=== PATIENT | male | born 1990 | race Two or more races ===

== ENCOUNTER 2024-11-07 16:28 | Inpatient (IN) | payer MEDICAID, SELFPAY ==
[2024-11-07 16:29] VITALS: BMI 32.8
[2024-11-07 17:30] VITALS: BP 112/72; PULSE 130; RESP 20; TEMP 38.3; O2SAT 97
--- NOTE | 2024-11-07 17:41 | EKG_ITS ---
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
--- NOTE | 2024-11-07 18:05 | PD.EDRME ---
Rapid Medical Screening Exam RME Arrival date/time: 11/07/24 16:28 Chief Complaint: Extremity Injury, Lower Time Seen by Provider: 11/07/24 17:21 Vital signs: Vital Signs Temperature 100.9 F H 11/07/24 17:30 Pulse Rate 130 H 11/07/24 17:30 Respiratory Rate 20 11/07/24 17:30 Blood Pressure 112/72 11/07/24 17:30 Pulse Oximetry (%) 97 11/07/24 17:30 Oxygen Delivery Method Room Air 11/07/24 17:30 Vital signs reviewed by provider: Yes RME Narrative: 34-year-old male presents to the ED with a complaint of left lower extremity swelling, redness and significant pain. The symptoms began yesterday and has become progressively worse. He has had a fever and tachycardia. Unknown context of injury he does not remember a bite or any small amount of redness or swelling. He woke up yesterday with the entire lower extremity swollen. Sepsis bundle ordered, sepsis fluids and antibiotics pending. Patient will be moved to the ED side for further treatment and disposition. I have greeted and performed a focused initial assessment of this patient. A comprehensive ED assessment and evaluation of the patient, analysis of all test results, and completion of the medical decision making process will be conducted by additional ED providers.
[2024-11-07] MEDS: SODIUM CHLORIDE 0.9% 1000 ML 1,000 ML 999 ML IV (18:15)
[2024-11-07 18:18] LABS: Lactate (Lactic Acid) 1.5 mMol/L (0.4-2.0)
[2024-11-07 18:23] LABS: Basophils % (Auto) 0 % (0-2.5); Eosinophils % (Auto) 0 % (0-10); Hematocrit 36.7 % (41.0-53.0); Hemoglobin 12.5 g/dL (13.5-16.0); Immature Granulocytes % (Auto) 0 % (0-0); Immature Granulocytes Auto 0.04 Thou/mm3 (0.00-0.00); Lymphocytes # (Auto) 1.3 Thou/mm3 (1.0-4.8); Lymphocytes % (Auto) 12 % (10-50); Mean Corpuscular HGB Conc 34.1 g/dl (31.0-37.0); Mean Corpuscular Hemoglobin 30.3 pg (25.0-35.0); Mean Corpuscular Volume 89 fL (80-100); Monocytes # (Auto) 0.9 Thou/mm3 (0.0-0.8); Monocytes % (Auto) 8 % (0-12); Neutrophils # (Auto) 8.9 Thou/mm3 (1.8-7.7); Neutrophils % (Auto) 79 % (37-80); Nucleated Red Blood Cell % 0 /100 WBC (0); Platelet Count 262 Thou/mm3 (140-440); RDW Standard Deviation 41.7 fL (35.1-43.9); Red Blood Count 4.13 Miln/mm3 (4.50-5.90); White Blood Count 11.2 Thou/mm3 (3.8-10.6)
[2024-11-07 18:39] LABS: INR 1.1 (0.9-1.3); Partial Thromboplastin Time 29.6 Seconds (22.0-36.0); Prothrombin Time 11.9 Seconds (9.0-12.2)
[2024-11-07 18:45] LABS: Alanine Aminotransferase 13 U/L (10-49); Albumin/Globulin Ratio 1.3 (1.2-2.2); Alkaline Phosphatase 59 U/L (46-116); Anion Gap 6 (7-16); Aspartate Amino Transferase 21 U/L (0-34); BUN/Creatinine Ratio 10 Ratio (12-20); Bilirubin,Total 0.5 mg/dL (0.3-1.2); Blood Urea Nitrogen 10 mg/dL (9-23); Calcium 8.9 mg/dL (8.3-10.6); Calcium (Corrected) 8.9 mg/dL (8.5-10.1); Carbon Dioxide 25.7 mMol/L (20.0-31.0); Chloride 102 mMol/L (98-107); Estimated Creatinine Clearance 116.6 mL/min (>60); Glucose 121 mg/dL (74-106); Osmolality,Calculated 268 (275-295); Potassium 3.3 mMol/L (3.4-5.1); Procalcitonin 1.44 ng/ml (0.0-0.49); Sodium 134 mMol/L (136-145); Troponin I < 0.002 ng/mL (0.0-0.045); eGFR > 60 See Note
--- NOTE | 2024-11-07 18:51 | XR_ITS ---
Examination: AP lateral chest 2 views Technique: Sitting AP lateral chest 2 views Exam date and time: November 07, 2024, 1931 hrs. Comparison June 30, 2005. Indications: Sepsis with bilateral leg pain beginning 2 days ago swelling involving the legs Findings: No significant cardiac enlargement taking into account AP projection Mild elevation right hemidiaphragm. No pneumonia or pulmonary edema. Intact osseous structures. Impression: No pneumonia or pulmonary edema
[2024-11-07 19:48] VITALS: BP 107/60; PULSE 107; RESP 19; TEMP 37.9; O2SAT 95
[2024-11-07 19:51] VITALS: PULSE 100; RESP 20; O2SAT 96
[2024-11-07] MEDS: RINGERS LACTATED 1983 ML IV (19:53)
[2024-11-07] MEDS: PIPER/TAZO INJ 4.5 GM in SODIUM CHLORIDE 0.9% (POP) 100 ML IV (19:55)
[2024-11-07] MEDS: Vancomycin Inj 2,000 MG in SODIUM CHLORIDE 0.9% 500 ML 500 ML 150 MG IV (19:57)
--- NOTE | 2024-11-07 20:21 | EDNOTE_ITS ---
Lower Extremity Injury RME/HPI General Chief Complaint: Extremity Injury, Lower Stated Complaint: LEFT LEG SWELLING FEVER SINCE YESTERDAY Time Seen by Provider: 11/07/24 17:21 Arrival date/time: 11/07/24 16:28 RME / HPI RME / HPI Narrative: 34-year-old male presents to the ED with a complaint of left lower extremity swelling, redness and significant pain. The symptoms began yesterday and has become progressively worse. He has had a fever and tachycardia. Unknown context of injury he does not remember a bite or any small amount of redness or swelling. He woke up yesterday with the entire lower extremity swollen. Sepsis bundle ordered, sepsis fluids and antibiotics pending. Patient will be moved to the ED side for further treatment and disposition. I have greeted and performed a focused initial assessment of this patient. A comprehensive ED assessment and evaluation of the patient, analysis of all test results, and completion of the medical decision making process will be conducted by additional ED providers. --------- Dr. Jackson?s Main ED Evaluation: 34yo male with no significant past medical history presents to the ED for a chief complaint of LLE pain and swelling x 2 days. Patient states he started having LLE pain and swelling 2 days ago, but denies any trauma. Patient endorses having a fever. He denies any cough, chest pain, shortness of breath or any other associated symptoms. Patient denies any history of similar symptoms. No known allergies. Related Data Allergies Allergy/AdvReac Type Severity Reaction Status Date / Time No Known Allergies Allergy Verified 11/07/24 16:31 Review of Systems Review of Systems Systems Reviewed: All systems reviewed, normal except as documented Past Medical History Past Medical History CARDIAC: Negative Congestive Heart Failure RESPIRATORY: Negative Chronic Obstructive Pulmonary Disease (COPD) GENITOURINARY: Negative Renal Disease ENDOCRINE: Negative Diabetes Mellitus Type 1 or Diabetes Mellitus Type 2 Social History SMOKING STATUS: Current every day smoker ED Exam Narrative Physical exam: GENERAL APPEARANCE: alert and oriented x 4, well-developed, well-nourished, no acute distress VITALS: All vitals were reviewed and the pulse ox is 96% on room air, which is normal according to my interpretation. HEENT: Normocephalic, atraumatic; pupils equal, round, reactive to light; EOMI; mucous membranes pink, moist; oropharynx clear NECK: Supple LUNGS: CTABL; no wheezes, no rales, no rhonchi HEART: Regular rate, regular rhythm; normal S1, S2; no murmurs ABDOMEN: non distended; normal BS; soft, no tenderness, no guarding, no rebound; no masses, no organomegaly, no hernia BACK: no CVA tenderness EXTREMITIES: atraumatic; no edema; circumferential erythema, swelling, tenderness, and hot to touch at the LLE from the ankle to just above the knee; erythema to the medial aspect of the LLE from the knee to the groin with er ythema, swelling, and tenderness on palpation NEUROLOGIC: awake; alert and oriented x4; cranial nerves II-XII grossly intact; no focal sensory or motor deficits PSYCHIATRIC: appropriate mood and affect SKIN: warm, dry, normal color; no rashes Course Course Course Narrative: CXR is ordered for determining the etiology of fever. Quality Measures Possible source: skin/soft tissue Blood cultures ordered: yes Antibiotic ordered: Yes Pertinent labs: 11/07/24 18:10 Lactic Acid 1.5 mMol/L (0.4-2.0) Procalcitonin 1.44 H ng/ml (0.0-0.49) sepsis Orders Category Date Time Status Bedside Blood Glucose NOW Care 11/07/24 17:41 Active Small Products Ii Assembler NOW Care 11/07/24 17:41 Active Continuous Pulse Oximetry NOW Care 11/07/24 17:41 Completed EKG (ED ONLY) *Do not use* NOW Care 11/07/24 17:41 Completed Insert IV NOW Care 11/07/24 17:41 Active Strict Intake and Output Q1H Care 11/07/24 17:45 Ordered Strict Intake and Output Q1H Care 11/07/24 18:45 Ordered Strict Intake and Output Q1H Care 11/07/24 19:45 Ordered Strict Intake and Output Q1H Care 11/07/24 20:45 Ordered Strict Intake and Output Q1H Care 11/07/24 21:45 Ordered Strict Intake and Output Q1H Care 11/07/24 22:45 Ordered Strict Intake and Output Q1H Care 11/07/24 23:45 Ordered Strict Intake and Output Q1H Care 11/08/24 00:45 Ordered Strict Intake and Output Q1H Care 11/08/24 01:45 Ordered Strict Intake and Output Q1H Care 11/08/24 02:45 Ordered Strict Intake and Output Q1H Care 11/08/24 03:45 Ordered Strict Intake and Output Q1H Care 11/08/24 04:45 Ordered Strict Intake and Output Q1H Care 11/08/24 05:45 Ordered Strict Intake and Output Q1H Care 11/08/24 06:45 Ordered Strict Intake and Output Q1H Care 11/08/24 07:45 Ordered Strict Intake and Output Q1H Care 11/08/24 08:45 Ordered Strict Intake and Output Q1H Care 11/08/24 09:45 Ordered Strict Intake and Output Q1H Care 11/08/24 10:45 Ordered Strict Intake and Output Q1H Care 11/08/24 11:45 Ordered Strict Intake and Output Q1H Care 11/08/24 12:45 Ordered Strict Intake and Output Q1H Care 11/08/24 13:45 Ordered Strict Intake and Output Q1H Care 11/08/24 14:45 Ordered Strict Intake and Output Q1H Care 11/08/24 15:45 Ordered Strict Intake and Output Q1H Care 11/08/24 16:45 Ordered EKG (ED Only) Stat Exams 11/07/24 17:41 Draft US venous doppler LE LT Stat Exams 11/07/24 20:22 Completed XR chest 2V Stat Exams 11/07/24 18:51 Completed Blood Culture (Lab) Stat Lab 11/07/24 18:10 Received CBC Stat Lab 11/07/24 18:10 Completed Comprehensive Metabolic Panel Stat Lab 11/07/24 18:10 Completed Lactate (Lactic Acid) Stat Lab 11/07/24 18:10 Completed Partial Thromboplastin Time Stat Lab 11/07/24 18:10 Completed Procalcitonin Stat Lab 11/07/24 18:10 Completed Prothrombin Time with INR Stat Lab 11/07/24 18:10 Completed Troponin I Stat Lab 11/07/24 18:10 Completed Urinalysis Stat Lab 11/07/24 21:54 Received Urine Culture Stat Lab 11/07/24 21:54 Received Acetaminophen Tab [Tylenol ES Tab] Med 11/07/24 20:27 Discontinued 1,000 mg PO X1 ONE Piper/Tazo Inj [Zosyn Inj] 4.5 gm Med 11/07/24 17:44 Discontinued Sodium Chloride 0.9% (Pop) [NS 0.9% mini bag] 100 ml IV X1 Potassium Chloride [K-Dur] Med 11/07/24 21:46 Discontinued 40 meq PO X1 ONE Ringers Lactated 1000 ml [Lactated Ringers] 1,983 ml Med 11/07/24 18:49 Discontinued IV 1,983 mls/hr Sodium Chloride 0.9% 1000 ml [Ns] 1,000 ml Med 11/07/24 18:05 Discontinued IV 999 mls/hr Sodium Chloride 0.9% 1000 ml [Ns] 2,858 ml Med 11/07/24 17:40 Discontinued IV 2,858 mls/hr Vancomycin Inj 2,000 mg Med 11/07/24 19:00 Active Sodium Chloride 0.9% 500 ml [Ns] 500 ml IV X1 Vancomycin Pharmacy to Dose Med 11/07/24 17:45 Active 1 each IV QDAY PRN Vancomycin/D5w 1,250 mg Ivpb 250 ml Med 11/08/24 06:00 Active IV Q8HR Vancomycin/Water 1250 mg Ivpb 250 ml Med 11/08/24 06:00 Discontinued IV Q8HR Oxygen Delivery NOW RT 11/07/24 17:41 Active Vital Signs Vital signs: Vital Signs Temperature 100.9 F H 11/07/24 17:30 Pulse Rate 130 H 11/07/24 17:30 Respiratory Rate 20 11/07/24 17:30 Blood Pressure 112/72 11/07/24 17:30 Pulse Oximetry (%) 97 11/07/24 17:30 Oxygen Delivery Method Room Air 11/07/24 17:30 Extremity Injury, Lower MDM Narrative MDM Narrative:: Scribe Attestation: 11/07/24 - Emmy Velazquez am scribing for and in the presence of Dr. Jackson. 1733: Sepsis alert initiated prior to my shift. Orders made at this time are congruent with ED Adult Sepsis Order List. Re-evaluation is to be completed. 1941: NS IVF infused. 2010: Sepsis reassessment performed consisting of lab review, vitals, physical exam including auscultation of heart, lungs, and visual evaluation of capillary refills, mucosal membranes and extremities. 2213: US is negative for DVT. Discussed case with the resident physician, attending Dr. Veliz from Hospitalist service regarding admission. Discussed patients ED course, exam findings, labs, and radiology results. The Hospitalist agrees to accept the patient for admission. Patient data External records reviewed:: [facility] previous records (Per chart review, patient has no relevant previous ED visits.) Clinical information provided by:: patient Social determinants that could affect healthcare access:: none Patient has the following chronic illnesses:: none How is presenting disease/condition affected by chronic disease/condition?: no chronic disease Evaluation data The following diagnostics were reviewed and interpreted by me:: lab results and radiology exam(s) Lab and/or radiology exams considered but not ordered:: none Interpretation Summary: WBC count is elevated at 11.2, PT and INR are normal, PTT is normal, Potassium is 3.3, Lactic Acid is normal, Procalcitonin is elevated at 1.44, according to my interpretation. EKG done at 1750, sinus tachycardia, rate of 119, normal axis, no ectopy, no acute ischemia, according to my interpretation. [facility] Report Signed Patient: VICENTE PRICE. Record#: [id number] Birthdate: 1990 Age/Sex: 34 / M Location: [facility] Attending Dr: Ordering Physician: Jorge Jackson MD Date of Service: 11/07/24 Procedure(s): US venous doppler LE LT Accession Number(s): [id number] cc: Dank Bermeo MD; NO PRIMARY/FAMILY,PHYSICIAN; Jorge Jackson MD~ Examination: Duplex scan of the lower extremity, unilateral left Date and time of exam: November 07, 2024 2117 hrs. Indications: Erythema and warmth left leg onset today Technique: Duplex scan of the extremity veins using B-mode/grayscale imaging and Doppler spectral analysis and color flow Attention is directed to internal echogenicity, compression and augmentation involving these veins, color flow assessment, spectral analysis Findings: Major deep venous structures in the extremity demonstrate normal course and caliber. There is no evidence of deep vein thrombosis. Normal color flow and spectral analysis Impression: Negative for DVT.. Dictated By: Dank Bermeo MD Signed By: <Electronically signed by Dank Bermeo MD in OV> 11/07/24 2201 Medications / Prescriptions Medications or Prescriptions considered but not ordered:: none Medication administrations:: Medication Administration History Vancomycin HCl 2,000 mg/ (Sodium Chloride) 500 mls @ 150 mls/hr IV X1 ONE Stop: 11/07/24 22:19 Last Admin: 11/07/24 19:57 Dose: 10 mg/min, 150 mls/hr Documented By: RACHEL Vancomycin HCl/Dextrose (Vancomycin/D5w 1,250 Mg Ivpb) 250 mls @ 120 mls/hr IV Q8HR [facility] Stop: 11/15/24 05:59 Pharmacy Consult (Vancomycin Pharmacy To Dose 1 Each Each) 1 each IV QDAY PRN PRN Reason: PROTOCOL Stop: 12/07/24 17:44 Discontinued Medications Acetaminophen (Acetaminophen 500 Mg Tablet) 1,000 mg PO X1 ONE Stop: 11/07/24 20:28 Last Admin: 11/07/24 21:04 Dose: 1,000 mg Documented By: RACHEL Sodium Chloride (Ns) 2,858 mls @ 2,858 mls/hr 30 ml/kg infuse over 60 min (2858 ml) IV .Q1H ONE Stop: 11/07/24 18:39 Last Admin: 11/07/24 19:41 Dose: Not Given Documented By: RACHEL Non-Admin Reason: Cancelled by Provider Piperacillin Sod/Tazobactam (Sod 4.5 gm/ Sodium Chloride) 100 mls @ 200 mls/hr IV X1 ONE Stop: 11/07/24 18:13 Last Infusion: 11/07/24 20:43 Dose: Infused Documented By: Admin: 11/07/24 19:55 Dose: 200 mls/hr Documented By: RACHEL Comments: LATE DUE TO NO ROOM TILL NOW Sodium Chloride (Ns) 1,000 mls @ 999 mls/hr IV .Q1H1M ONE Stop: 11/07/24 19:05 Last Infusion: 11/07/24 19:41 Dose: Infused Documented By: Admin: 11/07/24 18:15 Dose: 999 mls/hr Documented By: SERGO Vancomycin HCl (Vancomycin/Water 1250 Mg Ivpb) 250 mls @ 120 mls/hr IV Q8HR [facility] Stop: 11/15/24 05:59 Lactated Ringer's (Lactated Ringers) 1,983 mls @ 1,983 mls/hr 30 ml/kg infuse over 60 min (1983 ml) IV .Q1H ONE Stop: 11/07/24 19:48 Last Infusion: 11/07/24 21:12 Dose: Infused Documented By: Admin: 11/07/24 19:53 Dose: 1,983 mls/hr Documented By: RACHEL Comments: LATE DUE TO NO ROOM TILL NOW Potassium Chloride (Potassium Chloride 20 Meq Tabcr) 40 meq PO X1 ONE Stop: 11/07/24 21:47 Last Admin: 11/07/24 21:55 Dose: 40 meq Documented By: RACHEL see above Consultations Consultation(s) initiated? (list below): Yes Consultation #1 (Physician, Specialty, Details): See MDM. Diagnosis Extremity Injury, Lower Differential Diagnosis: other (DVT, cellulitis, necrotizing fasciitis) Most likely diagnosis given after review of the tests above:: see clinical impression below Admission Indicated Admission indicated?: indicated Admission Request Was there a request for admission?: Yes Admission Attestation Admission request attestation: Discussed case with [] from Hospitalist service regarding admission. Discussed patients ED course, exam findings, labs, and radiology results. The Hospitalist [agrees,declines] to accept the patient for admission. Disposition Plan Disposition Plan: Admit Critical Care Time Critical Care Time Critical Care Time: Yes Total Critical Care Time (min.): 35 Attestation: The high probability of sudden, clinically significant deterioration in the patient?s condition required the highest level of my preparedness to intervene urgently. The services I provided to this patient were to treat and/or prevent clinically significant deterioration. Services included the following: chart data review, reviewing nursing notes and/or old charts, documentation time, otm consultant collaboration regarding findings and treatment options, medication orders and management, direct patient care, vital sign assessments and ordering, interpreting and reviewing diagnostic studies and lab tests. Aggregate critical care time includes only time during which I was engaged in work directly related to the patient?s care, as described above, whether at bedside or elsewhere in the Emergency Department. It did not include time spent performing other reported procedures or the services of residents, students, nurses or physician assistants. Discharge Plan Plan Patient Disposition: Admit Acute Care w/in Hospital Prescriptions/Referrals Referrals: No Primary/Family,Physician [Primary Care Provider] - In 1 week Problem List Clinical Impression: Cellulitis, Sepsis Patient/Caregiver Discharge Instructions Print Language: Macedonian Stand Alone Forms: Gisella Award Info., Patient Portal Info Letter
[2024-11-07] MEDS: ACETAMINOPHEN 500 MG TABLET 1000 MG PO (21:04)
[2024-11-07] MEDS: POTASSIUM CHLORIDE 20 mEq TABCR 40 MEQ PO (21:55)
[2024-11-07 22:04] LABS: Collection Type, Urine Clean Catch
[2024-11-07 22:15] VITALS: BP 117/60; PULSE 108; RESP 32; TEMP 37.8; O2SAT 98
[2024-11-07 22:24] LABS: Bacteria,Urine 4+; Bilirubin,Urine Negative (Negative); Blood,Urine 2+ (Negative); Clarity,Urine Turbid (Clear/Hazy); Color,Urine Yellow (Lt Yel-Yel); Glucose, Urine Negative (Negative); Ketones,Urine Negative (Negative); Leukocyte Esterase,Urine Positive (Negative); Nitrite,Urine Positive (Negative); Protein,Urine 1+ (Neg - Trace); RBC,Urine 7 /hpf (0-3); Specific Gravity,Urine 1.027 (1.001-1.035); Squamous Epithelial Cell,Urine 2 /hpf (0-5); Urobilinogen,Urine Negative mg/dL (0.0-1.0); WBC,Urine 28 /hpf (0-5)
--- NOTE | 2024-11-07 22:54 | XR_ITS ---
Examination: CT left lower extremity, with intravenous contrast. 2-D sagittal reconstructions. 2-D coronal reconstructions. 3-D reconstructions. Date and time of exam:November 08, 2024 0042 hrs. Indications: Left leg swelling redness and inflammation beginning yesterday CTDI: vol (mGy):5.85 DLP: (mGycm):387 Technique: Multiple 1.25 mm axial sections of the left lower extremity 60 cc Isovue-370 have been obtained. 2-D sagittal and coronal reconstructions have been obtained. 3-D reconstructions have been obtained. Low dose protocols were performed. One or more of the following dose reduction techniques were used; automated exposure control, adjustment of the mA and/or KV according to patient size, use of iterative reconstruction technique. Findings: Cellulitis pattern with edema in the subcutaneous fatty tissue with skin thickening No soft tissue abscess No luis cortical bone destruction 2 mm linear opacity adjacent to the distal fourth metatarsal No fracture Impression: Cellulitis pattern with edema in the subcutaneous fatty tissue lower leg No luis abscess Negative for osteomyelitis Recommend plain films follow-up to confirm 2 mm opaque foreign body adjacent to the distal fourth metatarsal
--- NOTE | 2024-11-07 23:03 | ESHP_ITS ---
Documentation for date of: 11/07/24 [facility] History of Present Illness History of present illness: The patient is a 34-year-old male with significant past medical history of prediabetes, and puncture wound over the left foot 1 year ago presented with chief complaint of left lower extremity swelling and redness for 2 days. His symptoms were associated with subjective fever, mild chills, and nausea including headache and diaphoresis. He does not remember any insect bite or injury, but reported having continuous pain over the left foot after puncture wound 1 year ago. He denied any lightheadedness, SOB, sore throat, chest pain, abdominal pain, any changes in bowel or bladder habit, chronic bilateral leg swelling, and any recent sick contacts. In the ED his vitals were significant for pulse 130, temperature 100.9, labs revealed white count 11.2, hemoglobin 12.5, sodium 134, potassium 3.3, blood sugar 121, osmolality 268, lactic acid 1.5, troponin negative, Pro-Cristopher 1.44. UA revealed turbid urine, 1+ protein, 2+ blood, nitrite positive, leukocyte esterase positive, RBC 7 and WBC 28 with urine bacteria 4. EKG revealed sinus tachycardia, chest x-ray was negative for vascular congestion or pneumonia, base Doppler left lower extremity was negative. PMH: Prediabetes SHX: None Social history: Smoked cigarette for about 6 months, and vaping recently about 2 to 3 months, last vaping was few days ago, denies alcohol or illicit drug use, works in the [employer] Medications: None Family history: Significant for diabetes in both parents, cardiac disease in mother Allergies: No known allergies Patient was given 30 cc/kg bolus IV fluid, IV vancomycin and Zosyn x 1, Tylenol x 1 and admitted to [facility] telemetry unit for further management of left lower extremity cellulitis. Review of Systems Review of Systems Systems Reviewed: All systems reviewed, normal except as documented Exam Vital Signs Temp Pulse Resp BP Pulse Ox O2 Del Method 100.0 F 108 H 32 H 117/60 98 Room Air 11/07/24 22:15 11/07/24 22:15 11/07/24 22:15 11/07/24 22:15 11/07/24 22:15 11/07/24 19:48 Narrative Exam General: Young, cooperative, well-developed gentleman, no acute distress, Alert and Oriented x 3 HEENT: Mildly dry mucous membranes, oropharynx clear Neck: Supple, No masses, No JVD CVS: Tachycardic, No murmurs, rubs or gallops Lungs: Clear to auscultation with no accessory use, no wheeze no rhonchi Abd: Soft, NT/ND, +BS, no organomegaly Ext: Left lower limb edema and erythema extending from ankle to the upper thigh, warm and well perfused Skin: Erythema over entire left lower limb, sparing the calf area Psych: Mildly diaphoretic and anxious Results: Labs 11/07/24 18:10 11/07/24 18:10 Labs: Short CBC 11/07/24 Range/Units 18:10 WBC 11.2 H (3.8-10.6) Thou/mm3 Hgb 12.5 L (13.5-16.0) g/dL Hct 36.7 L (41.0-53.0) % Plt Count 262 (140-440) Thou/mm3 BMP 11/07/24 18:10 Sodium 134 L Potassium 3.3 L Chloride 102 Carbon Dioxide 25.7 BUN 10 Creatinine 1.0 Glucose 121 H Calcium 8.9 Cardiac Enzymes 11/07/24 Range/Units 18:10 Troponin I < 0.002 (0.0-0.045) ng/mL Liver Function 11/07/24 Range/Units 18:10 Total Bilirubin 0.5 (0.3-1.2) mg/dL AST 21 (0-34) U/L ALT 13 (10-49) U/L Alkaline Phosphatase 59 (46-116) U/L Albumin 4.0 (3.5-5.0) gm/dL Urine 11/07/24 Range/Units 21:54 Urine Color Yellow (Lt Yel-Yel) Urine Clarity Turbid A (Clear/Hazy) Urine pH 6.0 (5.0-7.0) Ur Specific [place] 1.027 (1.001-1.035) Urine Protein 1+ A (Neg - Trace) Urine Glucose (UA) Negative (Negative) Quality Measures Quality Measures sepsis Current suspected stage: ruled out (No end organ failure) Possible source: skin/soft tissue Blood cultures ordered: yes Antibiotic ordered: Yes Medications Home Medications and Allergies Allergies Allergy/AdvReac Type Severity Reaction Status Date / Time No Known Allergies Allergy Verified 11/07/24 16:31 Visit Medications Acetaminophen (Acetaminophen 325 Mg Tablet) 650 mg PO Q6H PRN PRN Reason: Fever >101.5 Stop: 12/07/24 22:47 Acetaminophen (Acetaminophen 325 Mg Tablet) 650 mg PO Q6H PRN PRN Reason: PAIN SCALE 1-3 (mild Stop: 12/07/24 22:47 Hydrocodone Bitart/Acetaminophen (Hydrocodone/Apap 5/325 Tablet) 1 tab PO Q4HR PRN PRN Reason: PAIN SCALE 4-6 (Moderate Stop: 11/12/24 22:47 Enoxaparin Sodium (Enoxaparin Sod Inj 40 Mg/0.4 Ml Syringe) 40 mg SC QDAY EMILEE Stop: 11/22/24 08:59 Vancomycin HCl/Dextrose (Vancomycin/D5w 1,250 Mg Ivpb) 250 mls @ 120 mls/hr IV Q8HR EMILEE Stop: 11/15/24 05:59 Piperacillin Sod/Tazobactam (Sod 4.5 gm/ Sodium Chloride) 100 mls @ 200 mls/hr IV Q6HR EMILEE Stop: 11/15/24 00:00 Morphine Sulfate (Morphine Sulf Inj 10 Mg/Ml Vial) 1 mg IVP Q4H PRN PRN Reason: PAIN SCALE 7-10 (Severe Stop: 11/12/24 22:47 Ondansetron HCl (Ondansetron Inj 2 Mg/Ml Inj 2 Ml) 4 mg IV Q6H PRN; Protocol PRN Reason: NAUSEA OR VOMITING Stop: 12/07/24 22:47 Pharmacy Consult (Vancomycin Pharmacy To Dose 1 Each Each) 1 each IV QDAY PRN PRN Reason: PROTOCOL Stop: 12/07/24 17:44 Discontinued Medications Acetaminophen (Acetaminophen 500 Mg Tablet) 1,000 mg PO X1 ONE Stop: 11/07/24 20:28 Last Admin: 11/07/24 21:04 Dose: 1,000 mg Sodium Chloride (Ns) 2,858 mls @ 2,858 mls/hr 30 ml/kg infuse over 60 min (2858 ml) IV .Q1H ONE Stop: 11/07/24 18:39 Last Admin: 11/07/24 19:41 Dose: Not Given Piperacillin Sod/Tazobactam (Sod 4.5 gm/ Sodium Chloride) 100 mls @ 200 mls/hr IV X1 ONE Stop: 11/07/24 18:13 Last Infusion: 11/07/24 20:43 Dose: Infused Sodium Chloride (Ns) 1,000 mls @ 999 mls/hr IV .Q1H1M ONE Stop: 11/07/24 19:05 Last Infusion: 11/07/24 19:41 Dose: Infused Vancomycin HCl 2,000 mg/ (Sodium Chloride) 500 mls @ 150 mls/hr IV X1 ONE Stop: 11/07/24 22:19 Last Admin: 11/07/24 19:57 Dose: 10 mg/min, 150 mls/hr Vancomycin HCl (Vancomycin/Water 1250 Mg Ivpb) 250 mls @ 120 mls/hr IV Q8HR EMILEE Stop: 11/15/24 05:59 Lactated Ringer's (Lactated Ringers) 1,983 mls @ 1,983 mls/hr 30 ml/kg infuse over 60 min (1983 ml) IV .Q1H ONE Stop: 11/07/24 19:48 Last Infusion: 11/07/24 21:12 Dose: Infused Potassium Chloride (Potassium Chloride 20 Meq Tabcr) 40 meq PO X1 ONE Stop: 11/07/24 21:47 Last Admin: 11/07/24 21:55 Dose: 40 meq Assessment & Plan Plan The patient is a 34-year-old male with significant past medical history of prediabetes, and puncture wound over the left foot 1 year ago presented with chief complaint of left lower extremity swelling and redness for 2 days. The patient is admitted to med telemetry unit for further management of left lower extremity cellulitis. #Left lower limb cellulitis #SIRS 2/4 criteria positive #Mild leukocytosis #Ruled out left lower limb DVT Etiology of cellulitis unknown, but there is possibility that patient had punctured wound with some foreign body last year, has been complaining of pain in when he stepped on left foot acting as a nidus. Prediabetic patient presented with chief complaint of left lower extremity swelling and redness for 2 days, associated with subjective fever, mild chills, nausea and headache. Pulse 130, temperature 100.9 and white count of 11.2 during presentation. Pro-Cristopher 1.44. Received 1 dose of IV vancomycin and Zosyn in the ED along with 30 cc/kg IV bolus fluid. US Doppler left lower extremity was negative for DVT - Admitted to med telemetry unit - Started the patient on vancomycin and Zosyn-11/07/2024 - Follow-up on blood, urine culture - Ordered CAT scan of left lower extremity with contrast to rule out any abscess - Daily a.m. labs for CBC, CMP and electrolytes - Pain management #Bacteriuria #Mild proteinuria Presented with turbid urine, 1+ protein, 2+ blood, nitrite positive, leukocyte esterase positive, RBC 7 and WBC 28 with urine bacteria 4, but denies any symptoms -On antibiotics as above #Prediabetes Presented with blood sugar of 121, and has not followed with primary care doctor for years - Ordered A1c Health maintenance: Dispo: Patient admitted to [facility] telemetry unit for further management of left lower limb cellulitis Diet: Regular diet DVT prophylaxis: Subcu enoxaparin 40 Mg daily CODE STATUS: Full code The patient's management plan was discussed with my attending physician MD Fede Fam MD, PGY2 Attending Provider Attestation/Addendum I have examined the patient, reviewed labs and imaging findings, discussed the case with the resident(s), and reviewed entered orders. I agree with the plan of care as outlined in this note, with these additional summaries/recommendations: Patient is a 34-year-old male with a medical history of prediabetes who presents to [facility] on 11/07/2024 with chief complaint of left lower extremity pain, swelling, and erythema. Patient and sister seen at bedside. Patient reports approximately 2 days ago he started to experience left lower extremity pain, swelling, erythema, and warmth to touch which progressively worsened. Patient denies any trauma or spider bites but reports he had a sliver in his foot approximately 1 year ago. Patient has fairly impressive left lower extremity cellulitis. WBC 11.2 and procalcitonin 1.44. Patient is also febrile and tachycardic. Left lower extremity ultrasound negative for deep vein thrombosis. I palpated the entire left lower extremity and I cannot feel any fluctuance suggestive of abscess formation. Sensation intact throughout and patien able to move LLE freely. We will order CT left lower extremity and patient may even require MRI depending on results. Blood cultures taken in the ED, follow-up results when available. Start broad-spectrum antibiotics vancomycin and IV Zosyn. Start pain management. Patient reports he has prediabetes and we will order A1c. Start insulin sliding scale if indicated. Patient and sister updated on the plan and in agreement. All questions answered to satisfaction. Please see residents note for additional details and management. Dr. Jose Alfredo MD
[2024-11-07] MEDS: HYDROcodone/APAP 5/325 TABLET 1 TAB PO (23:25)
[2024-11-08] VITALS (11 sets, daily range): BP systolic 102–124; BP diastolic 62–82; PULSE 81–106; RESP 18–19; TEMP 36.4–38.1; O2SAT 92–96; BMI 32.8
[2024-11-08] MEDS: PIPER/TAZO INJ 4.5 GM in SODIUM CHLORIDE 0.9% (POP) 100 ML IV (02:11)
--- NOTE | 2024-11-08 02:51 | PRELIM_ITS ---
CT scan of the left lower extremity with intravenous contrast (axial sections with sagittal and coronal reformats) November 08, 2024 0042 hours Clinical History: Cellulitis, abscess, foreign body in left mid sole. Comparison: No prior study is available for comparison. Findings: A linear hyperdense structure is seen along the lateral aspect of the distal end of the fourth metatarsal (measuring about 7 mm in length and 3 mm in thickness (axial image 281/315, sagittal images 57-61/111, coronal images 69- 71/130) with minimal adjacent fluid density. There is diffuse fat stranding and fluid/edema in the subcutaneous soft tissues in the dorsal and plantar aspects of the left foot and in the left leg upto the knee (to the extent visualized), consistent with cellulitis. No evidence of loculated drainable abscess. The visualized bones are unremarkable. No focal osseous destruction or obvious periosteal reaction. No fracture or dislocation is noted. Small left knee joint effusion is seen. The muscles of the visualized left lower extremity are normal without obvious collection within the muscles or in the intermuscular plane. Impression: 1. A linear hyperdense structure along the lateral aspect of the distal end of the fourth metatarsal as described, concerning for a small foreign body. 2. Diffuse fat stranding and fluid/edema in the subcutaneous soft tissues in the dorsal and plantar aspects of the left foot and in the left leg upto the knee (to the extent visualized), consistent with cellulitis. No evidence of loculated drainable abscess. 3. Other findings as described above. Suggest clinical correlation and follow up accordingly. Discussion Details: Results verbally communicated to : Results were verbally communicated to nurse Nathanael A callback number is provided to facilitate direct [id number] communication. Time of verbal communication 05 : 45 pm at 02:47 AM 11/08/2024 Report Electronically Signed By: Javier Choudhury 11/08/2024 2:50:45 AM [EST]
--- NOTE | 2024-11-08 02:53 | PC.NURSE ---
CT of lower extremity result relayed to MD Tello, no new order made at this time.
[2024-11-08 06:40] LABS: Basophils % (Auto) 0 % (0-2.5); Eosinophils % (Auto) 0 % (0-10); Hematocrit 33.1 % (41.0-53.0); Hemoglobin 10.9 g/dL (13.5-16.0); Immature Granulocytes % (Auto) 1 % (0-0); Immature Granulocytes Auto 0.06 Thou/mm3 (0.00-0.00); Lymphocytes # (Auto) 1.4 Thou/mm3 (1.0-4.8); Lymphocytes % (Auto) 12 % (10-50); Mean Corpuscular HGB Conc 32.9 g/dl (31.0-37.0); Mean Corpuscular Volume 91 fL (80-100); Monocytes # (Auto) 1.3 Thou/mm3 (0.0-0.8); Monocytes % (Auto) 11 % (0-12); Neutrophils # (Auto) 8.9 Thou/mm3 (1.8-7.7); Neutrophils % (Auto) 76 % (37-80); Nucleated Red Blood Cell % 0 /100 WBC (0); Platelet Count 273 Thou/mm3 (140-440); Red Blood Count 3.63 Miln/mm3 (4.50-5.90); White Blood Count 11.7 Thou/mm3 (3.8-10.6)
--- NOTE | 2024-11-08 07:13 | PC.NURSE ---
vanco dose not available, Pharmacy will bring med, day shift RN was made aware.
[2024-11-08 07:15] LABS: Alanine Aminotransferase 11 U/L (10-49); Albumin, Serum 3.6 gm/dL (3.5-5.0); Albumin/Globulin Ratio 1.4 (1.2-2.2); Alkaline Phosphatase 58 U/L (46-116); Anion Gap 6 (7-16); Aspartate Amino Transferase 16 U/L (0-34); BUN/Creatinine Ratio 8 Ratio (12-20); Bilirubin,Total 0.5 mg/dL (0.3-1.2); Blood Urea Nitrogen 9 mg/dL (9-23); Calcium 8.1 mg/dL (8.3-10.6); Calcium (Corrected) 8.4 mg/dL (8.5-10.1); Carbon Dioxide 26.7 mMol/L (20.0-31.0); Cardiac Risk Estimate 3.7 RATIO (4.0-6.7); Chloride 104 mMol/L (98-107); Cholesterol 112 mg/dL (132-200); Creatinine (Component) 1.1 mg/dL (0.6-1.3); Globulin 2.5 gm/dL (2.3-3.5); Glucose 115 mg/dL (74-106); HDL Cholesterol 30 mg/dL (40-60); LDL Cholesterol,Calculated 68 mg/dL (0-130); Magnesium 1.8 mg/dL (1.6-2.6); Osmolality,Calculated 273 (275-295); Phosphorous 2.8 mg/dL (2.4-5.1); Potassium 3.3 mMol/L (3.4-5.1); Sodium 137 mMol/L (136-145); Thyroid Stimulating Hormone 1.56 uIU/mL (0.55-4.78); Total Protein 6.1 gm/dL (5.7-8.2); Triglycerides 72 mg/dL (30-150); eGFR > 60 See Note
[2024-11-08] MEDS: VANCOMYCIN/D5W 1,250 MG IVPB 250 ML 120 MG IV ×3 (08:06→22:31)
[2024-11-08] MEDS: ENOXAPARIN SOD INJ 40 MG/0.4 ML SYRINGE SC (08:07)
[2024-11-08 08:09] LABS: Glucose Estimated Average 120 mg/dL (80-131); Hemoglobin A1C 5.8 % Hgb (4.8-6.0)
--- NOTE | 2024-11-08 08:36 | XR_ITS ---
Examination: Left foot 2 views Technique one AP lateral left foot 2 views Exam date and time: November 08, 2024 1012 hours INDICATIONS: Stepped on object one year ago with persistent foot pain. FINDINGS: No fracture. No opaque foreign body No cortical bone destruction IMPRESSION: No opaque foreign body
[2024-11-08] MEDS: Magnesium Sulfate 2 GM Ivpb 2 GM/50 ML BAG IV (09:21)
[2024-11-08] MEDS: POTASSIUM CHLORIDE 10% 20 MEQ/15 ML UDC 40 MEQ PO (09:21)
[2024-11-08] MEDS: MORPHINE SULF INJ 10 MG/ML VIAL IVP ×2 (11:45→19:57)
[2024-11-08] MEDS: ACETAMINOPHEN 325 MG TABLET 650 MG PO ×2 (12:44→20:12)
--- NOTE | 2024-11-08 12:49 | PD.RESPRO ---
Documentation for date of: 11/08/24 Subjective Subjective Interval history: Overnight admission for lower limb cellulitis. Patient stated that several months ago, he felt that he stepped on something and appeared there was a splinter on the plantar left foot. Pateint stated he is having 9/10 diffuse pain throughout left lowere extremity. Positive for pyrexia and chills. Continue antibiotics, medical management at this time. Pending Blood cultures. Exam Vital Signs Temp Pulse Resp BP Pulse Ox O2 Del Method 100.6 F H 106 H 18 114/82 92 L Room Air 11/08/24 12:44 11/08/24 08:00 11/08/24 08:00 11/08/24 08:00 11/08/24 08:00 11/08/24 08:00 Narrative Exam General Appearance: Alert & Oriented X3, well-nourished male who is lying in bed in mild distress, secondary to left lower extremity tenderness, which is erythematous and warm to the touch. HEENT: Skull symmetrical and atraumatic. Conjunctivae pin and moist. Pupils equal, round, reactive to light and accommodation (PERRL). External ear without lesion or discharge. Straight, nares patient, mucosa pink, no discharge. No thyroid nodule appreciated. No cervical lymphadenopathy. Cardio: Normal Rate and Rhythm with S1 and S2 heart sounds. No murmurs or extra heart sounds auscultated. No bruits on carotid auscultation. No peripheral edema or cyanosis. Lungs: Symmetric with good expansion. Chest and back non-tender. Breath sounds vesicular without crackles, wheezing or rhonchi Abdomen: Non-tender, Non-distended, Normal Reactive Bowel Sounds Neuro: Alert, cooperative, oriented to person, place, and time. Speech clear. CN grossly intact. Upper motor strength 5/5 and Lower motor strength 5/5. Sensation intact. Objective Labs 11/09/24 06:06 11/09/24 06:06 Labs: Laboratory Results - last 24 hr 11/07/24 11/07/24 11/08/24 18:10 21:54 04:48 WBC 11.2 H 11.7 H RBC 4.13 L 3.63 L Hgb 12.5 L 10.9 L Hct 36.7 L 33.1 L MCV 89 91 MCH 30.3 30.0 MCHC 34.1 32.9 RDW Std Deviation 41.7 44.0 H Plt Count 262 273 Neut % (Auto) 79 76 Lymph % (Auto) 12 12 [place] % (Auto) 8 11 Eos % (Auto) 0 0 Baso % (Auto) 0 0 Neut # (Auto) 8.9 H 8.9 H Lymph # (Auto) 1.3 1.4 [place] # (Auto) 0.9 H 1.3 H Eos # (Auto) 0.0 0.0 Baso # (Auto) 0.0 0.0 Immature Gran # (Auto) 0.04 H 0.06 H Absolute Nucleated RBC 0.00 0.00 Immature Gran % 0 1 H Nucleated RBC % 0 0 PT 11.9 INR 1.1 APTT 29.6 Sodium 134 L 137 Potassium 3.3 L 3.3 L Chloride 102 104 Carbon Dioxide 25.7 26.7 Anion Gap 6 L 6 L BUN 10 9 Creatinine 1.0 1.1 Estim Creat Clear Calc 116.6 106.0 eGFR > 60 > 60 BUN/Creatinine Ratio 10 L 8 L Glucose [address] Glu mg/dL 120 Hemoglobin A1c 5.8 Calculated Osmolality 268 L 273 L Lactic Acid 1.5 Calcium 8.9 8.1 L Corrected Calcium 8.9 8.4 L Phosphorus 2.8 Magnesium 1.8 Total Bilirubin 0.5 0.5 AST 21 16 ALT 13 11 Alkaline Phosphatase 59 58 Troponin I < 0.002 Total Protein 7.0 6.1 Albumin 4.0 3.6 Globulin 3.0 2.5 Albumin/Globulin Ratio 1.3 1.4 Triglycerides 72 Cholesterol 112 L LDL Cholesterol, Calc 68 HDL Cholesterol 30 L Cholesterol/HDL Ratio 3.7 L Procalcitonin 1.44 H TSH 1.56 Ur Collection Type Clean Catch Urine Color Yellow Urine Clarity Turbid A Urine pH 6.0 Ur Specific [place] 1.027 Urine Protein 1+ A Urine Glucose (UA) Negative Urine Ketones Negative Urine Blood 2+ A Urine Nitrite Positive Urine Bilirubin Negative Urine Urobilinogen (Auto) Negative Ur Leukocyte Esterase Positive Urine RBC 7 H Urine WBC 28 H Ur Squamous Epith Cells 2 Urine Bacteria 4+ A Quality Measures Quality Measures sepsis Current suspected stage: ruled out Possible source: skin/soft tissue Blood cultures ordered: yes Antibiotic ordered: Yes Assessment & Plan Assessment Current Active Medications: Generic Name Dose Route Start Last Admin Trade Name Freq PRN Reason Stop Dose Admin Acetaminophen 650 mg 11/07/24 22:48 Acetaminophen 325 Mg Tablet PO 12/07/24 22:47 Q6H PRN PAIN SCALE 1-3 (mild Acetaminophen 650 mg 11/08/24 12:34 11/08/24 12:44 Acetaminophen 325 Mg Tablet PO 12/07/24 22:47 650 mg Q6H PRN Administration Fever > 100.4 Hydrocodone Bitart/Acetaminophen 1 tab 11/07/24 22:48 11/07/24 23:25 Hydrocodone/Apap 5/325 Tablet PO 11/12/24 22:47 1 tab Q4HR PRN Administration PAIN SCALE 4-6 (Moderate Enoxaparin Sodium 40 mg 11/08/24 09:00 11/08/24 08:07 Enoxaparin Sod Inj 40 Mg/0.4 Ml Syringe SC 11/22/24 08:59 40 mg QDAY EMILEE Administration Vancomycin HCl/Dextrose 250 mls @ 120 mls/hr 11/08/24 06:00 11/08/24 08:06 Vancomycin/D5w 1,250 Mg Ivpb IV 11/15/24 05:59 120 mls/hr Q8HR EMILEE Administration Protocol Piperacillin/Tazobactam/Dextrose 3.375 gm in 50 mls @ 12.5 mls/hr 11/08/24 14:00 Zosyn IV 11/15/24 13:59 Q8HR EMILEE Morphine Sulfate 1 mg 11/07/24 22:48 11/08/24 11:45 Morphine Sulf Inj 10 Mg/Ml Vial IVP 11/12/24 22:47 1 mg Q4H PRN Administration PAIN SCALE 7-10 (Severe Ondansetron HCl 4 mg 11/07/24 22:48 Ondansetron Inj 2 Mg/Ml Inj 2 Ml IV 12/07/24 22:47 Q6H PRN NAUSEA OR VOMITING Protocol Pharmacy Consult 1 each 11/07/24 17:45 Vancomycin Pharmacy To Dose 1 Each Each IV 12/07/24 17:44 QDAY PRN PROTOCOL Plan The patient is a 34-year-old male with significant past medical history of prediabetes, and puncture wound over the left foot 1 year ago presented with who was admitted to [facility] telemetry unit for further management of left lower extremity cellulitis. #Left lower limb cellulitis #Soft tissue infection #SIRS 2/4 criteria positive #Mild leukocytosis Cellulitis, secondary to possible splinter per paitent history. Patient deneied trauma to site or any recent surgies. Doppler negative for lower extremity DVT. CT showing edema in the subq fatty tissue of lower leg, negative osteomyelitis, and 2mm opaque foreign body, which was negative on plain film thus less likely there is a foreign body there. Continue to treat for cellulits. Plan: - Started the patient on vancomycin and Zosyn-11/07/2024 - Blood and urine culture pending - Pain management #Bacteriuria, asymtomatic #Mild proteinuria Presented with turbid urine, 1+ protein, 2+ blood, nitrite positive, leukocyte esterase positive, RBC 7 and WBC 28 with urine bacteria 4, but denies any symptoms Plan: -Zosyn, coverage with antibiotics from cellulitis. #Prediabetes Presented with blood sugar of 121, and has not followed with primary care doctor for years. A1c 5.8 (11/08/2024). Health maintenance: Dispo: Patient admitted to [facility] telemetry unit for further management of left lower limb cellulitis Diet: Regular diet DVT prophylaxis: Subcu enoxaparin 40 Mg daily CODE STATUS: Full code - The patient's plan was discussed with attending Dr. Rollins. Nathalia Dela Cruz MD PGY1 Internal Medicine Attending Provider Attestation/Addendum I reviewed labs, imaging, EKG, home medications and prior available records. Face to face evaluation was performed by me. I have personally examined the patient and discussed assessment and plan with the IM team. I reviewed the resident note and agree with the plan with exceptions as below. Left extremity cellulitis Sepsis secondary to cellulitis Hypokalemia Abnormal UA/possible UTI CT of the lower extremity is negative for osteomyelitis Continue vancomycin/Zosyn Follow-up cultures Trend WBC Replete potassium as needed and follow-up BMP
[2024-11-08] MEDS: PIPER/TAZO 3.375 GM PREMIX 3.375 GM/50 ML BAG IV ×2 (14:07→21:11)
--- NOTE | 2024-11-08 20:10 | PC.NURSE ---
notified Dr. Tlelo regarding patient c/o chills, shivering, feels like he has a fever, checked oral temp of 99.7. other vital signs are stable, per Dr ledbetter to give tylenol PO PRN and do cooling measures.
[2024-11-08 22:19] LABS: Vancomycin,Trough 14.7 mcg/mL (5.0-10.0)
[2024-11-08] MEDS: HYDROcodone/APAP 5/325 TABLET 1 TAB PO (23:15)
[2024-11-09] VITALS (10 sets, daily range): BP systolic 111–135; BP diastolic 67–80; PULSE 80–104; RESP 15–20; TEMP 36.6–38.3; O2SAT 95–99
[2024-11-09] MEDS: VANCOMYCIN/D5W 1,250 MG IVPB 250 ML 120 MG IV (05:18)
[2024-11-09] MEDS: PIPER/TAZO 3.375 GM PREMIX 3.375 GM/50 ML BAG IV ×3 (05:18→21:13)
[2024-11-09 06:35] LABS: Basophils % (Auto) 0 % (0-2.5); Eosinophils # (Auto) 0.1 Thou/mm3 (0.0-0.5); Eosinophils % (Auto) 1 % (0-10); Hematocrit 33.3 % (41.0-53.0); Hemoglobin 11.3 g/dL (13.5-16.0); Immature Granulocytes % (Auto) 1 % (0-0); Lymphocytes # (Auto) 1.6 Thou/mm3 (1.0-4.8); Lymphocytes % (Auto) 13 % (10-50); Mean Corpuscular HGB Conc 33.9 g/dl (31.0-37.0); Mean Corpuscular Hemoglobin 30.6 pg (25.0-35.0); Mean Corpuscular Volume 90 fL (80-100); Monocytes # (Auto) 1.4 Thou/mm3 (0.0-0.8); Monocytes % (Auto) 11 % (0-12); Neutrophils # (Auto) 9.1 Thou/mm3 (1.8-7.7); Neutrophils % (Auto) 74 % (37-80); Nucleated Red Blood Cell % 0 /100 WBC (0); Platelet Count 289 Thou/mm3 (140-440); RDW Standard Deviation 43.7 fL (35.1-43.9); Red Blood Count 3.69 Miln/mm3 (4.50-5.90); White Blood Count 12.3 Thou/mm3 (3.8-10.6)
[2024-11-09 07:23] LABS: Alanine Aminotransferase 16 U/L (10-49); Albumin, Serum 3.5 gm/dL (3.5-5.0); Albumin/Globulin Ratio 1.3 (1.2-2.2); Alkaline Phosphatase 66 U/L (46-116); Anion Gap 8 (7-16); Aspartate Amino Transferase 20 U/L (0-34); BUN/Creatinine Ratio 10 Ratio (12-20); Bilirubin,Total 0.3 mg/dL (0.3-1.2); Blood Urea Nitrogen 8 mg/dL (9-23); Calcium 8.3 mg/dL (8.3-10.6); Calcium (Corrected) 8.7 mg/dL (8.5-10.1); Chloride 105 mMol/L (98-107); Creatinine (Component) 0.8 mg/dL (0.6-1.3); Estimated Creatinine Clearance 145.8 mL/min (>60); Globulin 2.7 gm/dL (2.3-3.5); Glucose 130 mg/dL (74-106); Magnesium 2.1 mg/dL (1.6-2.6); Osmolality,Calculated 275 (275-295); Phosphorous 3.7 mg/dL (2.4-5.1); Potassium 3.6 mMol/L (3.4-5.1); Sodium 138 mMol/L (136-145); Total Protein 6.2 gm/dL (5.7-8.2); eGFR > 60 See Note
[2024-11-09] MEDS: HYDROcodone/APAP 5/325 TABLET 1 TAB PO ×3 (08:15→19:28)
[2024-11-09] MEDS: ENOXAPARIN SOD INJ 40 MG/0.4 ML SYRINGE SC (08:15)
--- NOTE | 2024-11-09 11:26 | XR_ITS ---
Examination: Duplex scan of the lower extremity, unilateral left complete Date and time of exam: November 09, 2024 12:11 PM INDICATIONS: Left leg redness swelling and pain beginning 3 days ago Technique: Duplex scan of the extremity veins using B-mode/grayscale imaging and Doppler spectral analysis and color flow Attention is directed to internal echogenicity, compression and augmentation involving these veins, color flow assessment, spectral analysis Findings: Major deep venous structures in the extremity demonstrate normal course and caliber. There is no evidence of deep vein thrombosis. Normal color flow and spectral analysis Impression: Negative for DVT..
--- NOTE | 2024-11-09 15:13 | ESPR_ITS ---
Documentation for date of: 11/09/24 Subjective Subjective Interval history: No overnight events reported. Patient did have several episodes of fevers through out the day of 100.5-100.6. Overall cellulitis has improved and erythema has decreased from inner thigh region. Continue antibiotics. Exam Vital Signs Temp Pulse Resp BP Pulse Ox O2 Del Method 98.3 F 93 20 113/67 99 Room Air 11/09/24 12:00 11/09/24 13:05 11/09/24 12:00 11/09/24 12:00 11/09/24 12:00 11/09/24 12:00 Narrative Exam General Appearance: Alert & Oriented X3, well-nourished male who is lying in bed in mild distress, secondary to left lower extremity tenderness, which is erythematous and warm to the touch. HEENT: Skull symmetrical and atraumatic. Conjunctivae pin and moist. Pupils equal, round, reactive to light and accommodation (PERRL). External ear without lesion or discharge. Straight, nares patient, mucosa pink, no discharge. No thyroid nodule appreciated. No cervical lymphadenopathy. Cardio: Normal Rate and Rhythm with S1 and S2 heart sounds. No murmurs or extra heart sounds auscultated. No bruits on carotid auscultation. No peripheral edema or cyanosis. Lungs: Symmetric with good expansion. Chest and back non-tender. Breath sounds vesicular without crackles, wheezing or rhonchi Abdomen: Non-tender, Non-distended, Normal Reactive Bowel Sounds Neuro: Alert, cooperative, oriented to person, place, and time. Speech clear. CN grossly intact. Upper motor strength 5/5 and Lower motor strength 5/5. Sensation intact. Objective Labs 11/10/24 05:16 11/10/24 05:16 Labs: Laboratory Results - last 24 hr 11/08/24 11/09/24 21:23 06:06 WBC 12.3 H RBC 3.69 L Hgb 11.3 L Hct 33.3 L MCV 90 MCH 30.6 MCHC 33.9 RDW Std Deviation 43.7 Plt Count 289 Neut % (Auto) 74 Lymph % (Auto) 13 [place] % (Auto) 11 Eos % (Auto) 1 Baso % (Auto) 0 Neut # (Auto) 9.1 H Lymph # (Auto) 1.6 [place] # (Auto) 1.4 H Eos # (Auto) 0.1 Baso # (Auto) 0.0 Immature Gran # (Auto) 0.10 H Absolute Nucleated RBC 0.00 Immature Gran % 1 H Nucleated RBC % 0 Sodium 138 Potassium 3.6 Chloride 105 Carbon Dioxide 25.0 Anion Gap 8 BUN 8 L Creatinine 0.8 Estim Creat Clear Calc 145.8 eGFR > 60 BUN/Creatinine Ratio 10 L Glucose 130 H Calculated Osmolality 275 Calcium 8.3 Corrected Calcium 8.7 Phosphorus 3.7 Magnesium 2.1 Total Bilirubin 0.3 AST 20 ALT 16 Alkaline Phosphatase 66 Total Protein 6.2 Albumin 3.5 Globulin 2.7 Albumin/Globulin Ratio 1.3 Vancomycin Trough 14.7 H Quality Measures Quality Measures sepsis Current suspected stage: ruled out Possible source: skin/soft tissue Blood cultures ordered: yes Antibiotic ordered: Yes Assessment & Plan Assessment Current Active Medications: Generic Name Dose Route Start Last Admin Trade Name Freq PRN Reason Stop Dose Admin Acetaminophen 650 mg 11/07/24 22:48 Acetaminophen 325 Mg Tablet PO 12/07/24 22:47 Q6H PRN PAIN SCALE 1-3 (mild Acetaminophen 650 mg 11/08/24 12:34 11/08/24 20:12 Acetaminophen 325 Mg Tablet PO 12/07/24 22:47 650 mg Q6H PRN Administration Fever > 100.4 Hydrocodone Bitart/Acetaminophen 1 tab 11/07/24 22:48 11/09/24 15:09 Hydrocodone/Apap 5/325 Tablet PO 11/12/24 22:47 1 tab Q4HR PRN Administration PAIN SCALE 4-6 (Moderate Enoxaparin Sodium 40 mg 11/08/24 09:00 11/09/24 08:15 Enoxaparin Sod Inj 40 Mg/0.4 Ml Syringe SC 11/22/24 08:59 40 mg QDAY EMILEE Administration Piperacillin/Tazobactam/Dextrose 3.375 gm in 50 mls @ 12.5 mls/hr 11/08/24 14:00 11/09/24 13:18 Zosyn IV 11/15/24 13:59 12.5 mls/hr Q8HR EMILEE Administration Morphine Sulfate 1 mg 11/07/24 22:48 11/08/24 19:57 Morphine Sulf Inj 10 Mg/Ml Vial IVP 11/12/24 22:47 1 mg Q4H PRN Administration PAIN SCALE 7-10 (Severe Ondansetron HCl 4 mg 11/07/24 22:48 Ondansetron Inj 2 Mg/Ml Inj 2 Ml IV 12/07/24 22:47 Q6H PRN NAUSEA OR VOMITING Protocol Plan The patient is a 34-year-old male with significant past medical history of prediabetes, and puncture wound over the left foot 1 year ago presented with who was admitted to [facility] telemetry unit for further management of left lower extremity cellulitis. #Sepsis, secondary to cellulitis, improving #Left lower limb cellulitis #Soft tissue infection #SIRS 2/4 criteria positive #Mild leukocytosis Cellulitis, secondary to possible splinter per paitent history. Patient deneied trauma to site or any recent surgeries. Doppler negative for lower extremity DVT. CT showing edema in the subq fatty tissue of lower leg, negative osteomyelitis, and 2mm opaque foreign body, which was negative on plain film thus less likely there is a foreign body there. Continue to treat for cellulits. Plan: - Started the patient on vancomycin and Zosyn-11/07/2024 - Blood Culture negative after 24 hours. - Pain management #Bacteriuria, asymptomatic #Mild proteinuria Presented with turbid urine, 1+ protein, 2+ blood, nitrite positive, leukocyte esterase positive, RBC 7 and WBC 28 with urine bacteria 4, but denies any symptoms Plan: -Zosyn, coverage with antibiotics from cellulitis. #Prediabetes Presented with blood sugar of 121, and has not followed with primary care doctor for years. A1c 5.8 (11/08/2024). #Mild Hypokalemia, resolved. Health maintenance: Dispo: Patient admitted to [facility] telemetry unit for further management of left lower limb cellulitis Diet: Regular diet DVT prophylaxis: Subcu enoxaparin 40 Mg daily CODE STATUS: Full code - The patient's plan was discussed with attending Dr. Ria Dela Cruz MD PGY1 Internal Medicine Attending Provider Attestation/Addendum I reviewed labs, imaging, EKG, home medications and prior available records. Face to face evaluation was performed by me. I have personally examined the patient and discussed assessment and plan with the IM team. I reviewed the resident note and agree with the plan with exceptions as below. Left extremity cellulitis Sepsis secondary to cellulitis Hypokalemia Abnormal UA/possible UTI CT of the lower extremity is negative for osteomyelitis Given the leg swelling, ordered venous duplex that showed no acute DVT Continue IV Zosyn. MRSA test is negative for which IV vancomycin was stopped Follow-up cultures Trend WBC: Slightly increased Replete potassium as needed and follow-up BMP
[2024-11-09] MEDS: MORPHINE SULF INJ 10 MG/ML VIAL IVP (15:55)
--- NOTE | 2024-11-09 16:07 | PC.SS ---
Patient is alert/oriented. He was able to verify demographics. Patient was admitted for cellulitis of left leg. Patient was independent with ADL's prior to hospitalization. Patient resides with grandparents. Patient is currently on iv. vanco and zosyn. Physician notes indicate pre-diabetic. Patient states he does not have a p.c.p. but is willing to follow up at [facility]. Patient pharmacy: [facility]. He does not drive but has family who can assist with transportation. Patient alt medical decision maker is his mother, Krissy @ [phone]
[2024-11-09] MEDS: ACETAMINOPHEN 325 MG TABLET 650 MG PO (17:17)
[2024-11-09] MEDS: SENNA TABLET 1 TAB PO (21:40)
[2024-11-09] MEDS: Milk Of Magnesia Susp 30 ML UDC PO (21:40)
[2024-11-10] VITALS (7 sets, daily range): BP systolic 108–139; BP diastolic 69–85; PULSE 74–98; RESP 12–26; TEMP 36–36.8; O2SAT 94–96; BMI 32.2
[2024-11-10] MEDS: HYDROcodone/APAP 5/325 TABLET 1 TAB PO (03:30)
[2024-11-10] MEDS: PIPER/TAZO 3.375 GM PREMIX 3.375 GM/50 ML BAG IV ×3 (05:11→21:15)
[2024-11-10 05:58] LABS: Basophils % (Auto) 0 % (0-2.5); Eosinophils # (Auto) 0.2 Thou/mm3 (0.0-0.5); Eosinophils % (Auto) 2 % (0-10); Hematocrit 33.2 % (41.0-53.0); Hemoglobin 10.9 g/dL (13.5-16.0); Immature Granulocytes % (Auto) 1 % (0-0); Immature Granulocytes Auto 0.14 Thou/mm3 (0.00-0.00); Lymphocytes % (Auto) 17 % (10-50); Mean Corpuscular HGB Conc 32.8 g/dl (31.0-37.0); Mean Corpuscular Hemoglobin 29.4 pg (25.0-35.0); Mean Corpuscular Volume 90 fL (80-100); Monocytes # (Auto) 1.4 Thou/mm3 (0.0-0.8); Monocytes % (Auto) 11 % (0-12); Neutrophils # (Auto) 8.3 Thou/mm3 (1.8-7.7); Neutrophils % (Auto) 69 % (37-80); Nucleated Red Blood Cell % 0 /100 WBC (0); Platelet Count 316 Thou/mm3 (140-440); RDW Standard Deviation 43.3 fL (35.1-43.9); Red Blood Count 3.71 Miln/mm3 (4.50-5.90)
[2024-11-10 06:19] LABS: Alanine Aminotransferase 20 U/L (10-49); Albumin, Serum 3.4 gm/dL (3.5-5.0); Albumin/Globulin Ratio 1.2 (1.2-2.2); Alkaline Phosphatase 68 U/L (46-116); Anion Gap 6 (7-16); Aspartate Amino Transferase 21 U/L (0-34); BUN/Creatinine Ratio 9 Ratio (12-20); Bilirubin,Total 0.2 mg/dL (0.3-1.2); Blood Urea Nitrogen 8 mg/dL (9-23); Calcium 8.6 mg/dL (8.3-10.6); Calcium (Corrected) 9.1 mg/dL (8.5-10.1); Carbon Dioxide 30.4 mMol/L (20.0-31.0); Chloride 104 mMol/L (98-107); Creatinine (Component) 0.9 mg/dL (0.6-1.3); Estimated Creatinine Clearance 128.2 mL/min (>60); Globulin 2.9 gm/dL (2.3-3.5); Glucose 114 mg/dL (74-106); Magnesium 1.9 mg/dL (1.6-2.6); Osmolality,Calculated 278 (275-295); Phosphorous 4.3 mg/dL (2.4-5.1); Potassium 3.8 mMol/L (3.4-5.1); Sodium 140 mMol/L (136-145); Total Protein 6.3 gm/dL (5.7-8.2); eGFR > 60 See Note
[2024-11-10] MEDS: ENOXAPARIN SOD INJ 40 MG/0.4 ML SYRINGE SC (08:16)
--- NOTE | 2024-11-10 15:53 | ESPR_ITS ---
Documentation for date of: 11/10/24 Subjective Subjective Interval history: Overnight events reported. Patient complaining of persistent right lower extremity pain that is 10 out of 10 located at cellulitis site. Decreased ambulation---> PT pending. Left lower extremity decreasing erythema, roving can tender to site and warm to touch. Exam Vital Signs Temp Pulse Resp BP Pulse Ox O2 Del Method 98.2 F 98 26 H 139/85 H 94 L Room Air 11/10/24 12:00 11/10/24 12:11/10/24 12:11/10/24 12:11/10/24 12:11/10/24 07:46 Narrative Exam General Appearance: Alert & Oriented X3, well-nourished male who is lying in bed in mild distress, improved left lower extremity tenderness, decreasing erythema, but still warm to touch. HEENT: Skull symmetrical and atraumatic. Conjunctivae pin and moist. Pupils equal, round, reactive to light and accommodation (PERRL). External ear without lesion or discharge. Straight, nares patient, mucosa pink, no discharge. No thyroid nodule appreciated. No cervical lymphadenopathy. Cardio: Normal Rate and Rhythm with S1 and S2 heart sounds. No murmurs or extra heart sounds auscultated. No bruits on carotid auscultation. No peripheral edema or cyanosis. Lungs: Symmetric with good expansion. Chest and back non-tender. Breath sounds vesicular without crackles, wheezing or rhonchi Abdomen: Non-tender, Non-distended, Normal Reactive Bowel Sounds Neuro: Alert, cooperative, oriented to person, place, and time. Speech clear. CN grossly intact. Upper motor strength 5/5 and Lower motor strength 5/5. Sensation intact. Objective Labs 11/10/24 05:16 11/10/24 05:16 Labs: Laboratory Results - last 24 hr 11/10/24 05:16 WBC 12.0 H RBC 3.71 L Hgb 10.9 L Hct 33.2 L MCV 90 MCH 29.4 MCHC 32.8 RDW Std Deviation 43.3 Plt Count 316 Neut % (Auto) 69 Lymph % (Auto) 17 [place] % (Auto) 11 Eos % (Auto) 2 Baso % (Auto) 0 Neut # (Auto) 8.3 H Lymph # (Auto) 2.0 [place] # (Auto) 1.4 H Eos # (Auto) 0.2 Baso # (Auto) 0.0 Immature Gran # (Auto) 0.14 H Absolute Nucleated RBC 0.00 Immature Gran % 1 H Nucleated RBC % 0 Sodium 140 Potassium 3.8 Chloride 104 Carbon Dioxide 30.4 Anion Gap 6 L BUN 8 L Creatinine 0.9 Estim Creat Clear Calc 128.2 eGFR > 60 BUN/Creatinine Ratio 9 L Glucose 114 H Calculated Osmolality 278 Calcium 8.6 Corrected Calcium 9.1 Phosphorus 4.3 Magnesium 1.9 Total Bilirubin 0.2 L AST 21 ALT 20 Alkaline Phosphatase 68 Total Protein 6.3 Albumin 3.4 L Globulin 2.9 Albumin/Globulin Ratio 1.2 Quality Measures Quality Measures sepsis Current suspected stage: ruled out Possible source: skin/soft tissue Blood cultures ordered: yes Antibiotic ordered: Yes Assessment & Plan Assessment Current Active Medications: Generic Name Dose Route Start Last Admin Trade Name Freq PRN Reason Stop Dose Admin Acetaminophen 650 mg 11/07/24 22:48 Acetaminophen 325 Mg Tablet PO 12/07/24 22:47 Q6H PRN PAIN SCALE 1-3 (mild Acetaminophen 650 mg 11/08/24 12:34 11/09/24 17:17 Acetaminophen 325 Mg Tablet PO 12/07/24 22:47 650 mg Q6H PRN Administration Fever > 100.4 Hydrocodone Bitart/Acetaminophen 1 tab 11/07/24 22:48 11/10/24 03:30 Hydrocodone/Apap 5/325 Tablet PO 11/12/24 22:47 1 tab Q4HR PRN Administration PAIN SCALE 4-6 (Moderate Enoxaparin Sodium 40 mg 11/08/24 09:00 11/10/24 08:16 Enoxaparin Sod Inj 40 Mg/0.4 Ml Syringe SC 11/22/24 08:59 40 mg QDAY EMILEE Administration Piperacillin/Tazobactam/Dextrose 3.375 gm in 50 mls @ 12.5 mls/hr 11/08/24 14:00 11/10/24 13:04 Zosyn IV 11/15/24 13:59 12.5 mls/hr Q8HR EMILEE Administration Magnesium Hydroxide 30 ml 11/09/24 21:27 11/09/24 21:40 Milk Of Magnesia Susp 30 Ml Udc PO 12/09/24 21:26 30 ml QDAY PRN Administration CONSTIPATION Protocol Morphine Sulfate 1 mg 11/07/24 22:48 11/09/24 15:55 Morphine Sulf Inj 10 Mg/Ml Vial IVP 11/12/24 22:47 1 mg Q4H PRN Administration PAIN SCALE 7-10 (Severe Ondansetron HCl 4 mg 11/07/24 22:48 Ondansetron Inj 2 Mg/Ml Inj 2 Ml IV 12/07/24 22:47 Q6H PRN NAUSEA OR VOMITING Protocol Sennosides 1 tab 11/09/24 21:27 11/09/24 21:40 Senna Tablet PO 12/09/24 21:26 1 tab QDAY PRN Administration CONSTIPATION Protocol Plan The patient is a 34-year-old male with significant past medical history of prediabetes, and puncture wound over the left foot 1 year ago presented with who was admitted to [facility] telemetry unit for further management of left lower extremity cellulitis. #Sepsis, secondary to cellulitis, improving #Left lower limb cellulitis #Soft tissue infection #SIRS 2/4 criteria positive #Mild leukocytosis Cellulitis, secondary to possible splinter per paitent history. Patient deneied trauma to site or any recent surgeries. Doppler negative for lower extremity DVT. CT showing edema in the subq fatty tissue of lower leg, negative osteomyelitis, and 2mm opaque foreign body, which was negative on plain film thus less likely there is a foreign body there. Continue to treat for cellulits. Vancomycin d/c. Blood Culture negative after 48 hours. Plan: - Zosyn-11/07/2024 -Physical Therapy - Pain management #Bacteriuria, asymptomatic #Mild proteinuria Presented with turbid urine, 1+ protein, 2+ blood, nitrite positive, leukocyte esterase positive, RBC 7 and WBC 28 with urine bacteria 4, but denies any symptoms Plan: -Zosyn, coverage with antibiotics from cellulitis. #Prediabetes Presented with blood sugar of 121, and has not followed with primary care doctor for years. A1c 5.8 (11/08/2024). #Mild Hypokalemia, resolved. Health maintenance: Dispo: Patient admitted to [facility] telemetry unit for further management of left lower limb cellulitis Diet: Regular diet DVT prophylaxis: Subcu enoxaparin 40 Mg daily CODE STATUS: Full code - The patient's plan was discussed with attending Dr. Ria Dela Cruz MD PGY1 Internal Medicine Attending Provider Attestation/Addendum I reviewed labs, imaging, EKG, home medications and prior available records. Face to face evaluation was performed by me. I have personally examined the patient and discussed assessment and plan with the IM team. I reviewed the resident note and agree with the plan with exceptions as below. Left extremity cellulitis Sepsis secondary to cellulitis Hypokalemia Abnormal UA/possible UTI Leukocytosis CT of the lower extremity is negative for osteomyelitis Given the leg swelling, ordered venous duplex that showed no acute DVT Continue IV Zosyn. MRSA test is negative for which IV vancomycin was stopped Follow-up cultures: Negative to date Trend WBC: Downtrending Replete potassium as needed and follow-up BMP Ordered PT evaluation as the patient was not able to walk on his leg
[2024-11-10] MEDS: ACETAMINOPHEN 325 MG TABLET 650 MG PO (16:22)
[2024-11-11] VITALS: BP 113/56; PULSE 101; PULSE 90; RESP 18; TEMP 37.1; O2SAT 95
[2024-11-11] MEDS: HYDROcodone/APAP 5/325 TABLET 1 TAB PO ×2 (00:42→12:41)
[2024-11-11 04:00] VITALS: BP 117/68; PULSE 79; PULSE 81; RESP 18; TEMP 36.9; O2SAT 95
[2024-11-11] MEDS: PIPER/TAZO 3.375 GM PREMIX 3.375 GM/50 ML BAG IV ×2 (05:17→13:05)
[2024-11-11 06:12] LABS: Basophils % (Auto) 0 % (0-2.5); Eosinophils # (Auto) 0.2 Thou/mm3 (0.0-0.5); Eosinophils % (Auto) 2 % (0-10); Hematocrit 35.9 % (41.0-53.0); Hemoglobin 11.9 g/dL (13.5-16.0); Immature Granulocytes % (Auto) 2 % (0-0); Immature Granulocytes Auto 0.21 Thou/mm3 (0.00-0.00); Lymphocytes # (Auto) 2.1 Thou/mm3 (1.0-4.8); Lymphocytes % (Auto) 21 % (10-50); Mean Corpuscular HGB Conc 33.1 g/dl (31.0-37.0); Mean Corpuscular Volume 90 fL (80-100); Monocytes # (Auto) 1.2 Thou/mm3 (0.0-0.8); Monocytes % (Auto) 12 % (0-12); Neutrophils # (Auto) 6.2 Thou/mm3 (1.8-7.7); Neutrophils % (Auto) 63 % (37-80); Nucleated Red Blood Cell % 0 /100 WBC (0); Platelet Count 384 Thou/mm3 (140-440); RDW Standard Deviation 42.8 fL (35.1-43.9); Red Blood Count 3.97 Miln/mm3 (4.50-5.90); White Blood Count 9.9 Thou/mm3 (3.8-10.6)
[2024-11-11 06:33] LABS: Alanine Aminotransferase 21 U/L (10-49); Albumin, Serum 3.6 gm/dL (3.5-5.0); Albumin/Globulin Ratio 1.2 (1.2-2.2); Alkaline Phosphatase 75 U/L (46-116); Anion Gap 8 (7-16); Aspartate Amino Transferase 19 U/L (0-34); BUN/Creatinine Ratio 11 Ratio (12-20); Bilirubin,Total 0.2 mg/dL (0.3-1.2); Blood Urea Nitrogen 9 mg/dL (9-23); Calcium 8.8 mg/dL (8.3-10.6); Calcium (Corrected) 9.1 mg/dL (8.5-10.1); Chloride 104 mMol/L (98-107); Creatinine (Component) 0.8 mg/dL (0.6-1.3); Estimated Creatinine Clearance 141.6 mL/min (>60); Globulin 3.1 gm/dL (2.3-3.5); Glucose 105 mg/dL (74-106); Magnesium 1.9 mg/dL (1.6-2.6); Osmolality,Calculated 276 (275-295); Phosphorous 4.5 mg/dL (2.4-5.1); Sodium 139 mMol/L (136-145); Total Protein 6.7 gm/dL (5.7-8.2); eGFR > 60 See Note
[2024-11-11 07:44] VITALS: PULSE 74
[2024-11-11 08:00] VITALS: BP 122/85; PULSE 81; RESP 16; TEMP 36.6; O2SAT 99
[2024-11-11] MEDS: ENOXAPARIN SOD INJ 40 MG/0.4 ML SYRINGE SC (08:02)
--- NOTE | 2024-11-11 10:46 | ESDS_ITS ---
Planned Discharge Date 11/11/24 DS: Providers Provider Date of admission: 11/07/24 22:48 Primary care physician: Physician No Primary/Family Admitting Provider: Chrsitopher Veliz MD Attending Provider on Admission: Shahzad Rollins MD Consults: 11/10/24 14:39 Referral Physical Therapy Routine Comment: Physician Instructions: Attending Provider on DC: Becky Han MD Discharging Provider: Becky Han MD DS: Diagnosis Problem List Completed Was Problem List Reviewed/Reconciled?: Yes Hospital Course Hospital Course Hospital course: 34-year-old male without significant past medical history was admitted for left lower extremity cellulitis treatment and management. Patient presented with chief complaints of left lower extremity pain, erythema, subjective fever, chills, nausea and generalized weakness. Physical exam was positive for left lower limb edema and erythema extending from ankle to the mid thigh, warm and tender when you touch. Patient stated that symptoms started 2 days ago. Otherwise patient denied any shortness of breath, chest pain, chronic leg swelling, any recent sick contact. On presentation patient was hemodynamically stable, however was febrile with temperature of 100.9, labs revealed leukocytosis, Pro-Cristopher was elevated. Ultrasound of the lower extremity was negative for DVT. CT showed edema in the subcutaneous fatty tissue of the lower leg, negative for osteomyelitis. Patient met SIRS criteria 2 out of 4 and was admitted for further treatment and management. Patient started on IV fluids and IV antibiotics. Culture was sent. During hospital stay patient condition significantly improved, erythema and lower extremity edema significantly subsided, patient worked with PT, leukocytosis and fever resolved. Blood culture was negative. UA was consistent for UTI, urine culture also revealed E. coli which was sensitive to current antibiotic that patient was receiving, however patient denied any dysuria. Today upon our evaluation patient was hemodynamically stable, patient will be discharged home with p.o. antibiotics to complete a course of cellulitis treatment. Follow-up outpatient with PCP 1 to 2 weeks after discharge. All questions and concerns were addressed. Patient gave verbalized understanding. #Sepsis secondary to cellulitis resolved #Left lower extremity cellulitis #UTI #Prediabetes with an A1c of 5.8 Continue p.o. antibiotics as prescribed Follow-up outpatient with PCP in 1 week after discharge Return to ED anytime symptoms worsens. Time Spent with Patient Time attestation: Total time spent providing and/or coordinating discharge services: Time spent: Greater than 30 minutes Exam Vital Signs Temp Pulse Resp BP Pulse Ox O2 Del Method 98 F 81 16 122/85 H 99 Room Air 11/11/24 08:00 11/11/24 08:00 11/11/24 08:00 11/11/24 08:00 11/11/24 08:00 11/11/24 08:00 Narrative Exam GENERAL: no acute distress, AAO x3, well nourished. HEENT: Head AT/ NC. Mucous membranes moist. PERRL. NECK: Supple, no lymphadenopathy, no carotid bruits. CARDIOVASCULAR: RRR. Normal S1/S2, No m/r/g. RESPIRATORY: CTAB. No wheezing, rhonchi, crackles. GASTROINTESTINAL: Abdomen soft, non tender no palpable masses. Bowel sounds present in all 4 quadrants. MUSCULOSKELETAL:? No cyanosis , Left lower limb edema and erythema extending from ankle to the upper thigh, warm and well perfused NEUROLOGICAL: CN II-XII grossly intact. No focal deficits. Sensation intact, symmetric. PSYCHIATRIC: Awake and alert, not agitated, normal mood and affect. Discharge Plan Plan Patient Disposition: HOME (Self Care) Care Plan Goals: Instructions: -Please complete antibiotics for skin infection until November 21, 2024 with Cephalexin 500 mg three times a day and Doxycline 100 mg twice daily -Please follow up with your primary care provider within one week of discharge -If your symptoms worsen,please seek immediate medical attention and return to your nearest emergency room -If you do not have a primary care provider, you may follow up at the [facility] at [address], [place] [address], Prescriptions/Referrals Prescriptions/Med Rec: New cephalexin 500 mg capsule 500 mg PO TID 12 Days Qty: 36 0RF doxycycline hyclate 100 mg capsule 100 mg PO BID 12 Days Qty: 24 0RF ketorolac 10 mg tablet 10 mg PO Q8H PRN (Reason: pain) 6 Days Qty: 18 0RF Rx Instructions: maximum total duration of 5 days from all oral, intranasal, or parenteral formulations Referrals: No Primary/Family,Physician [Primary Care Provider] - Patient/Caregiver Discharge Instructions Education Materials: Discharge Instructions for Cellulitis Print Language: Kazakh Stand Alone Forms: Gisella Award Info., Patient Portal Info Letter Discharge Order Discharge Orders: Discharge (Routine); Ordered 11/11/24 Ordered By: Nathalia Dela Cruz Quality Discharge Quality Measures VTE prophylaxis Attestestation MD Attestation I reviewed labs, imaging, EKG, home medications and prior available records. Face to face evaluation was performed by me. I have personally examined the patient and discussed assessment and plan with the IM team. I reviewed the resident note and agree with the plan with exceptions as below. Left extremity cellulitis Sepsis secondary to cellulitis Hypokalemia Abnormal UA/possible UTI Leukocytosis CT of the lower extremity is negative for osteomyelitis Given the leg swelling, ordered venous duplex that showed no acute DVT Will discharge on p.o. Keflex and p.o. doxycycline Ketorolac for pain as needed Follow-up cultures: Negative to date Trend WBC: Downtrending Replete potassium as needed and follow-up BMP Time spent is 40 minutes. More than 50% of the time was spent on patient education and coordination of care.
[2024-11-11 12:00] VITALS: BP 127/71; PULSE 92; PULSE 97; RESP 19; TEMP 36.6; O2SAT 95
== END 2024-11-11 15:00 | disposition home or self-care (01) | DRG 720 ==
LOC: SERX 22:16 → SERHOLD 11-08 00:11 → S3SX 11-08 00:59
PROVIDERS: Physician Assistant; Student in an Organized Health Care Education/Training Program; Admitting Provider Student in an Organized Health Care Education/Training Program; Emergency Provider Emergency Medicine; Visit Provider Student in an Organized Health Care Education/Training Program
DX: A41.9 Sepsis, unspecified organism (principal); L03.116 Cellulitis of left lower limb; E87.6 Hypokalemia; N39.0 Urinary tract infection, site not specified; B96.20 Unspecified Escherichia coli [E. coli] as the cause of diseases classified elsewhere; R73.03 Prediabetes; F17.210 Nicotine dependence, cigarettes, uncomplicated; F17.290 Nicotine dependence, other tobacco product, uncomplicated
CPT/HCPCS: 36415; 71046; 73620; 73701; 80053; 80061; 80202; 81001; 83036; 83605; 83735; 84100; 84145; 84443; 84484; 85025; 85610; 85730; 87040; 87077; 87081; 87086; 87186; 87811; 93005; 93225; 93971; 96365; 96366; 97161; 99291; A4649; J1650; J2270; J2543; J3370; J3475; J7030; J7040; J7120; Q9967; A9270